=== PATIENT | male | born 1955 | race Caucasian/White ===

== ENCOUNTER 2019-03-18 14:26 | Emergency (ER) | payer MEDICARE, OTHER | END 2019-03-18 17:53 | disposition home or self-care (01) | LOC: E/R 14:26 | DX: M25.511 Pain in right shoulder (principal); I10 Essential (primary) hypertension; Z79.82 Long term (current) use of aspirin; Z87.891 Personal history of nicotine dependence | CPT/HCPCS: 73030; 73030-RT; 73060-RT; 99283-25 ==